=== PATIENT | male | born 1970 | race African-American/Black ===

== ENCOUNTER → 2025-01-04 13:40 | Outpatient (REF) | payer OTHER, SELFPAY ==
--- NOTE | 2025-01-01 09:09 | PN.DIAED02 ---
Referral
DSME Class Series Code: [id number]
Referred For: Diabetes Self-Management Training, Medical Nutrition Therapy, Self-Blood Glucose Monitoring, Long-Term Complication Instruction, Accute Complication Instruction, Continuous Glucose Monitoring, Medication management, Insulin
Instruction, Care Coordination, Disease Management
PHI Release Authorization Form Signed: Yes
Patient Problems:
Current Active Problems
Problem Status Onset
Diabetes type 2, uncontrolled 03/26/16
Demographic
(1) Diabetes type 2, uncontrolled
Status: Chronic Onset Date: 03/26/16 Code(s): E11.65 - Type 2 diabetes mellitus with hyperglycemia
Patient's primary language-: Hungarian
Education: Advanced college degree
Occupation: Professional
- Social
Primary Support Person: Self
Primary Care Takers: Self
Living Arrangements: Self & spouse, Family
- Learning Methods
Preferred Method: Reading, Lecture/audio, Hands-on demonstration, Group discussion
Barriers to Learning: None
Glycemic Control
- Blood Glucose Monitoring Assessment
Date: 12/31/24
Blood glucose monitoring at home: Yes
Monitor Brands: Other (Contour Next)
Frequency: 3x per day
Time: fasting, before breakfast, before lunch, before dinner
- Hyperglycemia Assessment
Experiences Hyperglycemia: Yes (experiences excess thirst )
Frequency: 7 or more times per week
- Hypoglycemia Assessment
Patient carries glucose source: No
Patient experiences hypoglycemia: No
- Blood Glucose Monitoring Results
Source: self-report (135 preprandial AM)
- Hemoglobin A1c
Date: 12/17/24
A1C Percentage (%): 11
Medical History of Diabetes
Family Diabetes History: Mother, Grandmother
Previous Diabetes Education: Yes
How long ago?: 7-12 mo. ago
Previous visit with Dietitian: No
Complications/Comorbidity/Specialist: Cataracts (surgery 2015), Diabetic Neuropathy (Pregabaln 50 mg q8h), Hypertension (amlodipine 10 mg QD HS, Lisinopril 50 mg QD, Carvedilol 6.25 mg BID), Hyperlipidemia, Kidney / bladder disease (gallbladder
removed), Metabolic (Jardiance 25 mg QDGlipizide 10 mg BID, Lantus 18 units HS), Neuropathy, Poor circulation (BPH: Flomax 0.4 mg QD), Retinopathy, Other / symptoms (Neck surgery 12/2024: Acetaminophen 325 mg Q8H PRN, Polyethylene glycol 17 g QD,
Tizanidine 2 mh q8h PRN; Thyroidectmy: Synthroid 75 mcg QD, other med: Vit D2 1.25 mg once weekly)
Current Home Medication
- Insulin Management
Patient adjusts own insulin dosages: No
- Insulin Types
Lantus
Insulin Injection Site: Abdomen
Administration Type: SoloSTAR
Measures
- Anthropometrics
Height: 6 ft
Actual Weight: 324 lb
- Blood Pressure / Pulse
Blood pressure: 141/77
Pulse: 80
- Diabetes Management
Medical Management for Diabetes: Complete physical exam (12/13/2024), Dental exam (09/22/2024), Dilated eye exam (02/11/2024)
Self-Care
- Tobacco Usage
Do you now, or have you ever smoked?: Never smoked
- Alcohol & Drugs Usage
Drinks Alcohol: No
- Meals & Dining
Meals & Dining: Patient skips meals: Yes, Food Intolerance / Allergy: No, Cultural / Restoration Dietary Needs: No
Primary Food Seafood Clerk: Self & Spouse
Primary Prop Sawyer: Self & Spouse
Dining Out Frequency: 4-6x per week
- Physical Activity
Physical Limitation: Yes (recent neck surgery, peripheral neuropathy, starting PT/OT)
Patient participates in physical Activity: Yes
Activity Types: Other (post surgical rehab)
Frequency: 1-2x per week
- Self Foot-Care
Foot Problems: Neuropathy
- Patient-Self Assessment
Diabetes Knowledge: Poor
Feelings About Diabetes: Denial
General Health: Poor
Importance of Health: Extremely
Stress Level: Medium
Diabetes Interferes With:: Family/social activities
Depression Survey Score: 3
- Diabetes Identification
Carries Diabetes Identification: No
Diabetes Identification Information Provided: Yes
Care Plan
- Education Needs
Patient Education Needs: Diabetes disease process, Chronic complications, Acute complications, Medication, Monitoring, Physical activity, Psychosocial Adjustment, Nutritional management, Goal setting & problem solving
Recommended Diabetes Training Program based on assessment: Outpatient Diabetes Education Program
- Plan of Care
Plan of Care:
Patient presented for initial DSME appointment with . [facility]. History of thryoid cancer, eye stroke, DM since 2016 with education at time of diagnosis. Patient not following up with PCP, pre surgical
testing HvA1c 11%. New to Jardiance and Lantus. Demonstrated proper insulin administration, technique, and storage. Assisted with Lantus Solostar insulin and injection, reinforced 18 units daily as per MD orders, frequent blood glucose monitoring
and PCP follow up for dose adjustments as needed. Discussed CGM (previously ised Free Style Damon) and deferred to insurance. Member currently using Contour Next glucometer. Reviewed new Rx for Jardiance, explained MoA and encouraged water
intake. Reviewed nutrition and recommended dietary log to discuss with RD. Patient reports extensive dental disease, difficulty eating hard foods and maintains soft diet. Encouraged to reach out to office with questions prior to course.
--- NOTE | 2025-01-01 16:01 | PN.DIAED04 ---
Education Record
- Education Record
Class Attended: Other (Initial DSME assessment)
DSME Class Series Code: [id number]
Instructor: Registered Nurse
Pre-Program Knowledge: Needs review / Assistance
Pre-Test Score (%): 35
Goals
- Goal 1
Being Active: Exercise 30 minutes-5 times per week
Goals To Be Evaluated: Exercise 30 mins-5x/week
- Goal 2
Healthy Eating: Make better food choices, Follow meal plan, Reduce portion sizes
Goals To Be Evaluated: Make better food choices. Follow meal plan. Reduce portion sizes
- Goal 3
Monitoring: Check blood sugar 4x daily-b4 breakfast/b4 lunch/b4 dinner/at bedtime
Goals To Be Evaluated: Check blood sugar 4x/day
--- NOTE | 2025-01-06 14:37 | PN.DIAED14 ---
This is to notify you that your patient with diabetes, SHAINA POTTER ( 1970), has enrolled in our diabetes self-management classes that are being held at [facility].
These classes will include an introduction to diabetes, diet, medication, exercise and prevention of complications. At the end of our class series, you will receive a report of your patient's participation and progress for your records.
Please contact me at the Diabetes Center, , if there is any particular information regarding your patient that might be helpful to me.
Sincerely,
Saroj BARBA-MARGO,[facility]
--- NOTE | 2025-01-06 14:40 | PN.DIAED04 ---
Education Record
- Education Record
Class Attended: Class 1
DSME Class Series Code: [id number]
Instructor: Nurse Practitioner (FREDA Montiel)
Class Curriculum:
Outpatient Diabetes Education Program:
Class 1 (120 minutes)
Describe the diabetes disease process and treatment options
Diabetes management
Develop personal strategies to promote health and behavior change
Integrate psychosocial adjustment for daily living
Monitor blood glucose and other parameters. Interpret and use the results for self-management decision making
Prevent, detect, and treat acute complications
Class Length (mins): 120
Post-Class 1 Test Score (%): 88
== END ==
LOC: DES 13:40
PROVIDERS: ATTENDING PHYSICIAN Physician Assistant
DX: E11.65 Type 2 diabetes mellitus with hyperglycemia (principal)
CPT/HCPCS: 99078

== ENCOUNTER → 2025-01-11 10:16 | Outpatient (REF) | payer OTHER, SELFPAY ==
--- NOTE | 2025-01-12 15:46 | PN.DIAED04 ---
Education Record
- Education Record
Class Attended: Class 2
DSME Class Series Code: [id number]
Instructor: Registered Dietitian (Prachi Domingo, RD, LDN, CDE)
Class Curriculum:
Outpatient Diabetes Education Program:
Class 2 (120 minutes)
Incorporate nutritional management into lifestyle
Understanding nutritional value
Understanding carbohydrate counting
Class Length (mins): 120
== END ==
LOC: DES 10:16
PROVIDERS: ATTENDING PHYSICIAN Physician Assistant
DX: E11.65 Type 2 diabetes mellitus with hyperglycemia (principal)
CPT/HCPCS: 99078

== ENCOUNTER → 2025-01-18 08:26 | Outpatient (REF) | payer OTHER, SELFPAY ==
--- NOTE | 2025-01-19 10:04 | PN.DIAED04 ---
Education Record
- Education Record
Class Attended: Class 3
DSME Class Series Code: [id number]
Instructor: Registered Dietitian (Prachi Domingo, RD, LDN, CDE)
Class Curriculum:
Outpatient Diabetes Education Program:
Class 3 (120 minutes)
Incorporate nutritional management into lifestyle
Class Length (mins): 120
Post-Class 2 & 3 Test Score (%): 88
== END ==
LOC: DES 08:26
PROVIDERS: ATTENDING PHYSICIAN Physician Assistant
DX: E11.65 Type 2 diabetes mellitus with hyperglycemia (principal)
CPT/HCPCS: 99078

== ENCOUNTER → 2025-01-25 09:12 | Outpatient (REF) | payer OTHER, SELFPAY ==
--- NOTE | 2025-01-26 14:48 | PN.DIAED04 ---
Education Record
- Education Record
Class Attended: Class 4
DSME Class Series Code: [id number]
Instructor: Nurse Practitioner (Damaris Malin NP)
Class Curriculum:
Outpatient Diabetes Education Program:
Class 4 (120 minutes)
Develop personal strategies to promote health and behavior change
Incorporate physical activity into lifestyle
Utilize medications safety for maximum therapeutic effectiveness
Understand different medication/insulin mechanism of action
Preparing for travel
Class Length (mins): 120
Post-Class 4 Test Score (%): 100
== END ==
LOC: DES 09:12
PROVIDERS: ATTENDING PHYSICIAN Physician Assistant
DX: E11.65 Type 2 diabetes mellitus with hyperglycemia (principal)
CPT/HCPCS: 99078

== ENCOUNTER → 2025-02-01 12:23 | Outpatient (REF) | payer OTHER, SELFPAY ==
--- NOTE | 2025-02-04 10:09 | PN.DIAED04 ---
Education Record
- Education Record
Class Attended: Class 5
DSME Class Series Code: [id number]
Instructor: Nurse Practitioner (FREDA Montiel)
Class Curriculum:
Outpatient Diabetes Education Program:
Class 5 (120 minutes)
Prevent, detect, and treat acute complications
Prevent, detect, and treat chronic complications through risk reduction
Develop personal strategies to address psychosocial issues and concerns
Development of diabetes self-management support plan
Letter to physician with DSMS plan attached sent
Class Length (mins): 120
Post-Test Score (%): 80
Post-Program Assessment
- Post-Program Assessment
Actual Weight: 311 lb 9.6 oz
Blood pressure: 161/86
Post-Program Depression Survey Score: 0
Reviewing Previous Goals?: Yes
Pre-Program Depression Survey Score: 3
- Goals 1 Evaluation
Goals To Be Evaluated: Exercise 30 mins-5x/week
- Goals 2 Evaluation
Goals To Be Evaluated: Make better food choices. Follow meal plan. Reduce portion sizes
- Goals 3 Evaluation
Goals To Be Evaluated: Check blood sugar 4x/day
--- NOTE | 2025-02-04 10:10 | PN.DIAED16 ---
This is to notify you that your patient with diabetes, SHAINA POTTER ( 1970), has attended the entire series of Diabetes Self-Management Education Classes.
Class 1 (120 minutes): Diabetes Overview - monitoring, stress/psychosocial adjustment, support, goal setting
Class 2 (120 minutes): Meal Planning - serving sizes, menu plans
Class 3 (120 minutes): Introduction to Carbohydrate Counting, Analyzing Food Labels
Class 4 (120 minutes): Medication, Exercise and Activity
Class 5 (120 minutes): Sick Day Management, Strategies to Reduce Complications, Problem Solving, Resources
The following behavioral goals were identified:
Exercise 30 mins-5x/week
Make better food choices
Follow meal plan
Reduce portion sizes
Check blood sugar 4x/day
A follow-up call will be made within three to six months to evaluate attainment of these goals and to check post-program Hemoglobin A1c and overall progress. All class participants are encouraged to contact me if I can be any further assistance in
learning how to manage their diabetes.
Sincerely,
Saroj BARBA-, GUEROES
== END ==
LOC: DES 12:23
PROVIDERS: ATTENDING PHYSICIAN Physician Assistant
DX: E11.65 Type 2 diabetes mellitus with hyperglycemia (principal)
CPT/HCPCS: 99078